=== PATIENT | female | born 1945 | race Hispanic/Latino ===

== ENCOUNTER → 2017-10-03 | Outpatient (CLI) | payer MEDICARE ==
[~2017-10-03] MED LIST: ASPI-1181 PO; IBUP-2077 PO; METF10004 PO; OMEP20TA25 PO
== END | disposition home or self-care (01) ==
LOC: RAH 10:11
PROVIDERS: ATTEND Orthopaedic Surgery
DX: S83.411A Sprain of medial collateral ligament of right knee, initial encounter (principal); S83.241A Other tear of medial meniscus, current injury, right knee, initial encounter; S83.281A Other tear of lateral meniscus, current injury, right knee, initial encounter; M17.11 Unilateral primary osteoarthritis, right knee; X58.XXXA Exposure to other specified factors, initial encounter; Y93.89 Activity, other specified; Y92.89 Other specified places as the place of occurrence of the external cause; Y99.8 Other external cause status
CPT/HCPCS: 73721

== ENCOUNTER 2017-12-14 06:34 | Day surgery (SDC) | payer MEDICARE ==
[2017-12-13 14:47] VITALS: BP 125/69
[2017-12-13 14:59] LABS: BASOPHILS % (AUTO) 0.4 % (0.0-5.0); EOSINOPHILS % (AUTO) 1.5 % (0.0-8.0); HEMATOCRIT 33.3 % (36-48); MEAN CORPUSCULAR HEMOGLOBIN 30.5 pg (27.0-33.0); MEAN CORPUSCULAR HGB CONC 33.8 g/dL (32.0-36.0); MEAN CORPUSCULAR VOLUME 90.3 fL (79-99); MONOCYTES % (AUTO) 7.5 % (3.0-13.0); NEUTROPHILS % (AUTO) 60.6 % (40.0-77.0); PLATELET COUNT (AUTO) 236 K/uL (130-400); RED BLOOD CELL COUNT(AUTO) 3.69 MIL/uL (4.00-5.50); RED CELL DISTRIBUTION WIDTH 13.4 % (11.0-15.5)
[2017-12-13 15:30] LABS: POTASSIUM 4.2 mmol/L (3.5-5.1)
[2017-12-14] VITALS (17 sets, daily range): BP systolic 83–152; BP diastolic 38–79
[~2017-12-14] VITALS: Ht 154.9 cm; Wt 78.0 kg
[2017-12-14] MEDS: CEFAZOLIN SODIUM 1 GM VIAL IVP SCH ×2 (07:30→09:15)
[2017-12-14] MEDS ORDERED: SODIUM CHLORIDE 0.9% 1000ML 1,000 ML IV ONE (07:47)
[2017-12-14] MEDS ORDERED: GLYCOPYRROLATE 0.2 MG/ML 5 ML VIAL ONE (08:17)
[2017-12-14] MEDS ORDERED: DEXAMETHASONE SOD PHOSPHATE 10MG/ML 1ML VIAL ONE (08:17)
[2017-12-14] MEDS ORDERED: LIDOCAINE PF 2% 5ML ABBOJECT ONE (08:17)
[2017-12-14] MEDS ORDERED: MIDAZOLAM HCL 1 MG/ML 2ML VIAL ONE (08:18)
[2017-12-14] MEDS ORDERED: PROPOFOL 10 MG/ML 20ML VIAL IV ONE (08:18)
[2017-12-14] MEDS ORDERED: FENTANYL CITRATE PF 50 MCG/1 ML 2ML VIAL ONE (08:18)
[2017-12-14] MEDS ORDERED: MEPERIDINE-PF 25 MG/ML SYG ONE (10:09)
[2017-12-14] MEDS ORDERED: ACETAMINOPHEN-CODEINE 300/30MG TAB ONE (11:50)
== END 2017-12-14 12:35 | disposition home or self-care (01) ==
LOC: DAH 06:34
PROVIDERS: ATTEND Orthopaedic Surgery
DX: M23.200 Derangement of unspecified lateral meniscus due to old tear or injury, right knee (principal); M23.203 Derangement of unspecified medial meniscus due to old tear or injury, right knee; Z68.32 Body mass index [BMI] 32.0-32.9, adult; E11.9 Type 2 diabetes mellitus without complications; K21.9 Gastro-esophageal reflux disease without esophagitis; G43.909 Migraine, unspecified, not intractable, without status migrainosus; M19.90 Unspecified osteoarthritis, unspecified site; Z98.890 Other specified postprocedural states; Z90.710 Acquired absence of both cervix and uterus; Z79.84 Long term (current) use of oral hypoglycemic drugs; Z79.899 Other long term (current) drug therapy
CPT/HCPCS: 29880; 36415; 80048; 82948 ×2; 85025; A4218; A4606; A4649 ×2; A4930; A6223; J0690; J1100; J2001; J2175; J2250; J2704; J3010; J3490; J7030

== ENCOUNTER → 2021-02-22 | Outpatient (CLI) | payer MEDICARE ==
[~2021-02-22] MED LIST changes: -ASPI-1181 PO; +ASPI-1443 PO; +METF-446 PO; -METF10004 PO
== END | disposition home or self-care (01) ==
LOC: RAH 11:04
PROVIDERS: ATTEND Neurological Surgery
DX: M47.816 Spondylosis without myelopathy or radiculopathy, lumbar region (principal); M48.062 Spinal stenosis, lumbar region with neurogenic claudication; M43.17 Spondylolisthesis, lumbosacral region; M48.07 Spinal stenosis, lumbosacral region; R25.2 Cramp and spasm
CPT/HCPCS: 72148

== ENCOUNTER 2021-06-20 11:00 | Observation (INO) | payer MEDICARE ==
[~2021-06-20] VITALS: Ht 157.5 cm; Wt 78.0 kg
[~2021-06-20 11:00] MED LIST changes: -ASPI-1443 PO
[2021-06-20 13:25] LABS: BASOPHILS % (AUTO) 0.3 % (0.0-5.0); EOSINOPHILS % (AUTO) 2.3 % (0.0-8.0); HEMATOCRIT 33.5 % (36-48); LYMPHOCYTES % (AUTO) 21.9 % (21.0-51.0); MEAN CORPUSCULAR HEMOGLOBIN 30.3 pg (27.0-33.0); MEAN CORPUSCULAR HGB CONC 33.4 g/dL (32.0-36.0); MEAN CORPUSCULAR VOLUME 90.5 fL (79-99); MONOCYTES % (AUTO) 7.9 % (3.0-13.0); NEUTROPHILS % (AUTO) 67.4 % (40.0-77.0); PLATELET COUNT (AUTO) 210 K/uL (130-400); RED CELL DISTRIBUTION WIDTH 12.7 % (11.0-15.5); WHITE BLOOD COUNT (AUTO) 6.5 K/uL (4.8-10.8)
[2021-06-20 13:35] LABS: CREATININE 1.3 mg/dL (0.5-1.5); POTASSIUM 4.5 mmol/L (3.5-5.1)
[2021-06-21 10:34] VITALS: BP 127/68
[2021-06-21] MEDS ORDERED: BACL10TA PO (11:03)
[2021-06-21] MEDS ORDERED: ATOR10 PO (11:03)
[2021-06-22] VITALS (29 sets, daily range): BP systolic 113–145; BP diastolic 45–80
[2021-06-22] MEDS: CEFAZOLIN SODIUM 1 GM VIAL IVP SCH ×4 (05:00→17:01)
[2021-06-22] MEDS ORDERED: MONTELUKAST PO (06:38)
[2021-06-22] MEDS ORDERED: 0.9%NACL 1000ML 1,000 ML IV ONE (06:39)
[2021-06-22] MEDS ORDERED: CEFAZOLIN SODIUM 1 GM VIAL ONE (06:44)
[2021-06-22] MEDS ORDERED: THROMBIN-JMI 20000 UNIT KIT TP ONE (06:44)
[2021-06-22] MEDS ORDERED: BUPIVACAINE/EPI/PF 0.25% 30ML VIAL IJ ONE (06:44)
[2021-06-22] MEDS ORDERED: LIDOCAINE PF 100MG/5ML (2%) SYRINGE 5ML ONE (07:10)
[2021-06-22] MEDS ORDERED: PROPOFOL 10 MG/ML 20ML VIAL IV ONE (07:11)
[2021-06-22] MEDS ORDERED: MIDAZOLAM HCL 1 MG/ML 2ML VIAL ONE (07:11)
[2021-06-22] MEDS ORDERED: ROCURONIUM 10MG/1ML SYR 10 MG/ML ML ONE (07:12)
[2021-06-22] MEDS ORDERED: ONDANSETRON 4MG INJ ONE (07:12)
[2021-06-22] MEDS ORDERED: KETAMINE 50MG/ML SYRINGE 50 MG/ML DISP.SYRIN IV ONE (07:13)
[2021-06-22] MEDS ORDERED: MAGNESIUM SULFATE 1 GM/2 ML VIAL ONE (07:14)
[2021-06-22] MEDS ORDERED: FENTANYL CITRATE PF 50 MCG/1 ML 2ML VIAL ONE ×2 (07:15→11:00)
[2021-06-22] MEDS ORDERED: DEXAMETHASONE SOD PHOSPHATE 10MG/ML 1ML VIAL ONE (07:52)
[2021-06-22] MEDS ORDERED: EPHEDRINE SULFATE 50 MG/ML AMPULE ONE (08:41)
[2021-06-22] MEDS ORDERED: MORPHINE PF 100MG/10ML AMP IV ONE (08:41)
[2021-06-22] MEDS ORDERED: GLYCOPYRROLATE 1 MG/5 ML SYRINGE ONE (10:27)
[2021-06-22] MEDS ORDERED: NEOSTIGMINE 5MG/5ML SYR IV ONE (10:27)
[2021-06-22] MEDS ORDERED: MORPHINE 2 MG SYG IVP PRN (11:00)
[2021-06-22] MEDS: DEXAMETHASONE SOD PHOSPHATE 4 MG/ML 1ML VIAL IVP SCH ×3 (11:00→22:52)
[2021-06-22] MEDS ORDERED: IBUPROFEN 800 MG TAB PO PRN (11:00)
[2021-06-22] MEDS ORDERED: 0.9%NACL 10ML VIAL IVP PRN (11:00)
[2021-06-22] MEDS: LACTATED RINGERS 1000ML 1,000 ML IV SCH (11:00)
[2021-06-22] MEDS ORDERED: PROMETHAZINE HCL 25 MG/ML 1ML AMPULE IM PRN (11:00)
[2021-06-22] MEDS ORDERED: HYDROCODONE/ACETAMINOPHEN 5/325 MG TAB PO PRN (11:00)
[2021-06-22] MEDS ORDERED: KETOROLAC 15MG/ML VIAL (15MG/ML) IV PRN (13:30)
[2021-06-22] MEDS ORDERED: GLUCAGON 1MG KIT 1 MG ML IM PRN (14:30)
[2021-06-22] MEDS ORDERED: DEXTROSE 50%-WATER 50 ML DISP.SYRIN IV PRN (14:30)
[2021-06-22] MEDS: INSULIN HUMULIN R 100 UNIT/ML 3ML SQ SCH ×2 (17:08→20:55)
[2021-06-22] MEDS ORDERED: ATORVASTATIN 10 MG TABLET PO SCH (21:00)
[2021-06-22] MEDS ORDERED: MONTELUKAST SODIUM 10 MG TAB PO SCH (21:00)
[2021-06-23] MEDS: LACTATED RINGERS 1000ML 1,000 ML IV SCH ×2 (00:20→13:40)
[2021-06-23 04:26] VITALS: BP 99/50
[2021-06-23] MEDS: DEXAMETHASONE SOD PHOSPHATE 4 MG/ML 1ML VIAL IVP SCH ×2 (06:04→11:00)
[2021-06-23] MEDS: CEFAZOLIN SODIUM 1 GM VIAL IVP SCH ×2 (06:04→11:00)
[2021-06-23] MEDS: INSULIN HUMULIN R 100 UNIT/ML 3ML SQ SCH ×2 (06:47→12:17)
[2021-06-23] MEDS ORDERED: METFORMIN HCL 500 MG TAB.SR.24H PO SCH (08:00)
[2021-06-23 08:12] VITALS: BP 94/50
[2021-06-23] MEDS ORDERED: BACLOFEN 10 MG TABLET PO SCH (09:00)
[2021-06-23] MEDS ORDERED: PANTOPRAZOLE 40 MG TAB DR PO SCH (09:00)
[2021-06-23] MEDS ORDERED: NON-FORMULARY MEDICATION 1 EACH (Metformin HCl 1,000 MG) PO SCH (09:00)
[2021-06-23 11:07] VITALS: BP 112/51
[2021-06-23] MEDS ORDERED: TAMSULOSIN HCL 0.4 MG CAP.ER.24H ONE (13:45)
[2021-06-23] MEDS ORDERED: TAMSULOSIN HCL 0.4 MG CAP.ER.24H PO SCH (15:00)
== END 2021-06-23 16:20 | disposition home or self-care (01) ==
LOC: EDSTATUS 11:00 → DAHIP 06-22 05:59 → 4DH 06-22 12:36 → 4AH 06-22 20:24
PROVIDERS: ADMIT Neurological Surgery; ATTEND Neurological Surgery
DX: M48.061 Spinal stenosis, lumbar region without neurogenic claudication (principal); Z20.822 Contact with and (suspected) exposure to COVID-19; M47.816 Spondylosis without myelopathy or radiculopathy, lumbar region; M21.371 Foot drop, right foot; M19.90 Unspecified osteoarthritis, unspecified site; E11.9 Type 2 diabetes mellitus without complications; K21.9 Gastro-esophageal reflux disease without esophagitis; G43.909 Migraine, unspecified, not intractable, without status migrainosus; E78.5 Hyperlipidemia, unspecified; Z90.710 Acquired absence of both cervix and uterus; Z79.899 Other long term (current) drug therapy
CPT/HCPCS: 36415; 63047; 63048 ×3; 72020; 80048; 82948 ×6; 85025; 87635; 96361 ×2; 96374; 96375 ×2; 96376 ×2; A4215; A4221; A4222; A4223; A4344; A4649 ×3; A4663; A5113; G0378 ×29; J0690 ×4; J1100 ×4; J1815 ×2; J1885; J2001; J2250; J2274; J2405; J2704; J2710; J3010 ×2; J3475; J3490 ×4; J7030 ×2; J7040; J7120 ×2

== ENCOUNTER 2021-10-17 08:00 | Inpatient (IN) | payer MEDICARE ==
[~2021-10-17] VITALS: Ht 152.4 cm; Wt 77.7 kg
[~2021-10-17 08:00] MED LIST changes: +ATOR10 PO
[2021-10-18 12:44] LABS: BASOPHILS % (AUTO) 0.3 % (0.0-5.0); EOSINOPHILS % (AUTO) 1.5 % (0.0-8.0); HEMATOCRIT 35.2 % (36-48); LYMPHOCYTES % (AUTO) 26.1 % (21.0-51.0); MEAN CORPUSCULAR HGB CONC 33.5 g/dL (32.0-36.0); MEAN CORPUSCULAR VOLUME 89.6 fL (79-99); MONOCYTES % (AUTO) 7.2 % (3.0-13.0); NEUTROPHILS % (AUTO) 64.8 % (40.0-77.0); PLATELET COUNT (AUTO) 218 K/uL (130-400); RED BLOOD CELL COUNT(AUTO) 3.93 MIL/uL (4.00-5.50); RED CELL DISTRIBUTION WIDTH 12.9 % (11.0-15.5); WHITE BLOOD COUNT (AUTO) 6.7 K/uL (4.8-10.8)
[2021-10-18 12:52] LABS: APPEARANCE,URINE Clear (CLEAR); BILIRUBIN,URINE Negative (NEGATIVE); COLOR,URINE Yellow (YELLOW); GLUCOSE, URINE (UA) Negative (NEGATIVE); KETONES,URINE Negative (NEGATIVE); LEUKOCYTE ESTERASE ,URINE Small (NEGATIVE); NITRATE,URINE Negative (NEGATIVE); OCCULT BLOOD,URINE Trace (NEGATIVE); PROTEIN,URINE Negative (NEGATIVE); UROBILINOGEN,URINE 0.2 mg/dL (0.2-1.0)
[2021-10-18 12:58] LABS: CREATININE 0.9 mg/dL (0.5-1.5); POTASSIUM 4.3 mmol/L (3.5-5.1)
[2021-10-18 13:01] LABS: INR 1.02 (0.85-1.15); PROTHROMBIN TIME 11.1 SEC (9.6-11.6)
[2021-10-18 13:17] LABS: BACTERIA,URINE Rare /HPF (None Seen); RBC,URINE 0-1 /HPF (0-1)
[2021-10-18 15:19] VITALS: BP 170/82
[2021-10-18] MEDS ORDERED: MONT10TA21 PO (15:36)
[2021-10-19] VITALS (24 sets, daily range): BP systolic 71–151; BP diastolic 44–80
[2021-10-19] MEDS ORDERED: 0.9%NACL 1000ML 1,000 ML IV ONE (07:17)
[2021-10-19] MEDS ORDERED: CEFAZOLIN SODIUM 1 GM VIAL ONE (07:35)
[2021-10-19] MEDS ORDERED: ROCURONIUM 10MG/1ML SYR 10 MG/ML ML ONE ×3 (07:52→10:30)
[2021-10-19] MEDS ORDERED: LIDOCAINE PF 100MG/5ML (2%) SYRINGE 5ML ONE (07:52)
[2021-10-19] MEDS ORDERED: SUCCINYLCHOLINE CHLORIDE 20 MG/ML 10 ML VIAL ONE (07:52)
[2021-10-19] MEDS ORDERED: ROPIVACAINE 0.5% 5MG/ML 30ML IJ ONE (07:52)
[2021-10-19] MEDS ORDERED: PROPOFOL 10 MG/ML 20ML VIAL IV ONE (07:52)
[2021-10-19] MEDS ORDERED: 0.9%NACL 10ML VIAL ONE ×2 (07:53→07:58)
[2021-10-19] MEDS ORDERED: TRANEXAMIC ACID 1000MG/10ML ONE ×2 (08:29→12:27)
[2021-10-19] MEDS ORDERED: PHENYLEPHRINE HCL 10 MG/ML 1ML VIAL IV ONE ×2 (08:40→09:41)
[2021-10-19] MEDS: CEFAZOLIN SODIUM 1 GM VIAL IVP ONE ×2 (08:56→09:22)
[2021-10-19] MEDS ORDERED: GLYCOPYRROLATE 1 MG/5 ML SYRINGE ONE (09:08)
[2021-10-19] MEDS ORDERED: CEFAZOLIN SODIUM 1 GM VIAL IRRIG ONE (10:00)
[2021-10-19] MEDS ORDERED: EPHEDRINE SULFATE 50 MG/ML AMPULE ONE ×2 (11:19→12:39)
[2021-10-19] MEDS ORDERED: ONDANSETRON 4MG INJ ONE (11:45)
[2021-10-19] MEDS ORDERED: NEOSTIGMINE 5MG/5ML SYR IV ONE (11:45)
[2021-10-19] MEDS ORDERED: FERROUS FUMARATE 324 MG TABLET PO PRN (12:30)
[2021-10-19] MEDS ORDERED: LIDOCAINE HCL-MPF 1% 2ML VIAL IV PRN (12:30)
[2021-10-19] MEDS ORDERED: KCL 20 MEQ ERTAB PO PRN (12:30)
[2021-10-19] MEDS ORDERED: TEMAZEPAM 15 MG CAPSULE PO PRN (12:30)
[2021-10-19] MEDS: 0.9%NACL 1000ML 1,000 ML IV SCH ×2 (12:30→22:30)
[2021-10-19] MEDS: ACETAMINOPHEN 500 MG TABLET PO SCH ×2 (12:30→20:53)
[2021-10-19] MEDS ORDERED: ONDANSETRON 4MG INJ IVP PRN (12:30)
[2021-10-19] MEDS ORDERED: OXYCODONE HCL 5 MG TAB PO PRN ×2 (12:30)
[2021-10-19] MEDS ORDERED: POTASSIUM CHLORIDE 10% ELIXIR 20 MEQ/15 ML UDCUP PO PRN (12:30)
[2021-10-19] MEDS ORDERED: POTASSIUM CHLORIDE 20MEQ/100ML 100 ML IV PRN (12:30)
[2021-10-19] MEDS ORDERED: DiphenhydrAMINE HCL 50 MG/ML VIAL IVP PRN (12:30)
[2021-10-19] MEDS ORDERED: TRAMADOL HCL 50 MG TABLET PO PRN (12:30)
[2021-10-19] MEDS ORDERED: MEPERIDINE-PF 25 MG/ML SYG ONE (12:59)
[2021-10-19] MEDS: KETOROLAC 15MG/ML VIAL (15MG/ML) IV PRN (16:14)
[2021-10-19] MEDS: INSULIN HUMULIN R 100 UNIT/ML 3ML SQ SCH ×2 (16:30→20:41)
[2021-10-19] MEDS: METFORMIN HCL 500 MG TABLET PO SCH (17:00)
[2021-10-19] MEDS: CEFAZOLIN SODIUM 1 GM VIAL IVP SCH (18:24)
[2021-10-19] MEDS: FAMOTIDINE 20MG TAB PO SCH (20:48)
[2021-10-19] MEDS: ASPIRIN 81 MG EC TAB PO SCH (20:48)
[2021-10-19] MEDS: CELECOXIB 200 MG CAP PO SCH (20:48)
[2021-10-20] VITALS (8 sets, daily range): BP systolic 84–123; BP diastolic 39–64
[2021-10-20] MEDS: CEFAZOLIN SODIUM 1 GM VIAL IVP SCH (01:26)
[2021-10-20] MEDS: ACETAMINOPHEN 500 MG TABLET PO SCH ×3 (04:39→19:56)
[2021-10-20 05:56] LABS: POTASSIUM 4.2 mmol/L (3.5-5.1)
[2021-10-20] MEDS: INSULIN HUMULIN R 100 UNIT/ML 3ML SQ SCH ×4 (06:05→21:00)
[2021-10-20 06:26] LABS: HEMATOCRIT 23.8 % (36-48); MEAN CORPUSCULAR HEMOGLOBIN 29.2 pg (27.0-33.0); MEAN CORPUSCULAR HGB CONC 31.1 g/dL (32.0-36.0); MEAN CORPUSCULAR VOLUME 94.1 fL (79-99); RED BLOOD CELL COUNT(AUTO) 2.53 MIL/uL (4.00-5.50); RED CELL DISTRIBUTION WIDTH 13.2 % (11.0-15.5); WHITE BLOOD COUNT (AUTO) 5.9 K/uL (4.8-10.8)
[2021-10-20] MEDS ORDERED: 0.9%NACL 1000ML 1,000 ML IV ONE (08:30)
[2021-10-20] MEDS: 0.9%NACL 1000ML 1,000 ML IV SCH (08:37)
[2021-10-20] MEDS: METFORMIN HCL 500 MG TABLET PO SCH ×2 (08:41→17:57)
[2021-10-20] MEDS: CELECOXIB 200 MG CAP PO SCH ×2 (08:41→19:56)
[2021-10-20] MEDS: MONTELUKAST SODIUM 10 MG TAB PO SCH (08:42)
[2021-10-20] MEDS: ASPIRIN 81 MG EC TAB PO SCH ×2 (08:42→19:56)
[2021-10-20] MEDS: ATORVASTATIN 20 MG TABLET PO SCH (08:43)
[2021-10-20] MEDS: FAMOTIDINE 20MG TAB PO SCH ×2 (08:44→19:56)
[2021-10-20] MEDS: POLYETHYLENE GLYCOL 3350 17 GM POWD.PACK PO SCH (08:45)
[2021-10-20] MEDS: PANTOPRAZOLE 40 MG TAB DR PO SCH (08:46)
[2021-10-20] MEDS: CALCIUM CARB 500MG PO PRN ×2 (10:56→19:56)
[2021-10-20] MEDS: KETOROLAC 15MG/ML VIAL (15MG/ML) IV PRN (18:11)
[2021-10-21 04:26] LABS: BASOPHILS % (AUTO) 0.3 % (0.0-5.0); HEMATOCRIT 26.8 % (36-48); LYMPHOCYTES % (AUTO) 18.2 % (21.0-51.0); MEAN CORPUSCULAR HEMOGLOBIN 29.2 pg (27.0-33.0); MEAN CORPUSCULAR HGB CONC 32.1 g/dL (32.0-36.0); MEAN CORPUSCULAR VOLUME 90.8 fL (79-99); MONOCYTES % (AUTO) 6.5 % (3.0-13.0); NEUTROPHILS % (AUTO) 72.5 % (40.0-77.0); PLATELET COUNT (AUTO) 107 K/uL (130-400); RED BLOOD CELL COUNT(AUTO) 2.95 MIL/uL (4.00-5.50); RED CELL DISTRIBUTION WIDTH 14.8 % (11.0-15.5); WHITE BLOOD COUNT (AUTO) 6.2 K/uL (4.8-10.8)
[2021-10-21 04:37] VITALS: BP 145/78
[2021-10-21] MEDS: INSULIN HUMULIN R 100 UNIT/ML 3ML SQ SCH ×3 (05:39→16:30)
[2021-10-21] MEDS: ACETAMINOPHEN 500 MG TABLET PO SCH ×2 (05:39→12:31)
[2021-10-21 07:59] VITALS: BP 126/63
[2021-10-21] MEDS: METFORMIN HCL 500 MG TABLET PO SCH ×2 (08:01→16:42)
[2021-10-21] MEDS: POLYETHYLENE GLYCOL 3350 17 GM POWD.PACK PO SCH (09:08)
[2021-10-21] MEDS: ATORVASTATIN 20 MG TABLET PO SCH (09:10)
[2021-10-21] MEDS: PANTOPRAZOLE 40 MG TAB DR PO SCH (09:10)
[2021-10-21] MEDS: MONTELUKAST SODIUM 10 MG TAB PO SCH (09:10)
[2021-10-21] MEDS: FAMOTIDINE 20MG TAB PO SCH (09:10)
[2021-10-21] MEDS: CELECOXIB 200 MG CAP PO SCH (09:11)
[2021-10-21] MEDS: ASPIRIN 81 MG EC TAB PO SCH (09:13)
[2021-10-21 11:18] VITALS: BP 134/60
[2021-10-21] MEDS: KETOROLAC 15MG/ML VIAL (15MG/ML) IV PRN (12:45)
[2021-10-21 16:02] VITALS: BP 108/66
[2021-10-22] MEDS ORDERED: BISACODYL 10 MG SUPP.RECT RC PRN (12:30)
== END 2021-10-21 20:17 | DRG 470 ==
LOC: EDSTATUS 08:00 → DAHIP 10-19 06:39 → OBSVTOIN 10-19 06:39 → 3BH 10-19 13:17
PROVIDERS: ADMIT Orthopaedic Surgery; ATTEND Orthopaedic Surgery
PROC: 3E0T33Z Introduction of Anti-inflammatory into Peripheral Nerves and Plexi, Percutaneous Approach (ICD-10-PCS; 2021-10-19)
PROC: 0SR9029 Replacement of Right Hip Joint with Metal on Polyethylene Synthetic Substitute, Cemented, Open Approach (ICD-10-PCS; principal; 2021-10-19 09:49)
PROC: 3E0T3BZ Introduction of Anesthetic Agent into Peripheral Nerves and Plexi, Percutaneous Approach (ICD-10-PCS; 2021-10-19 09:49)
PROC: 30233N1 Transfusion of Nonautologous Red Blood Cells into Peripheral Vein, Percutaneous Approach (ICD-10-PCS; 2021-10-20)
DX: M16.11 Unilateral primary osteoarthritis, right hip (principal); D62 Acute posthemorrhagic anemia; G89.29 Other chronic pain; Z20.822 Contact with and (suspected) exposure to COVID-19; G43.909 Migraine, unspecified, not intractable, without status migrainosus; E11.9 Type 2 diabetes mellitus without complications; M21.751 Unequal limb length (acquired), right femur; K21.9 Gastro-esophageal reflux disease without esophagitis; R26.9 Unspecified abnormalities of gait and mobility; Z88.6 Allergy status to analgesic agent; Z90.49 Acquired absence of other specified parts of digestive tract; Z90.710 Acquired absence of both cervix and uterus; Z82.49 Family history of ischemic heart disease and other diseases of the circulatory system
CPT/HCPCS: 36415; 36430; 73503; 80048; 81001; 82948; 85025; 85027; 85610; 86850; 86900; 86901; 86923; 87088; 87635; 87641; 97039; C1776; G0378; J0330; J0690; J1885; J2001; J2175; J2370; J2405; J2704; J2710; J2795; J3490; J7030; P9016

== ENCOUNTER → 2023-07-02 | Outpatient (CLI) | payer MEDICARE ==
[~2023-07-02] MED LIST changes: -IBUP-2077 PO; +MONT-47 PO; +OMEP20TA20 PO; -OMEP20TA25 PO
[2023-07-02 12:44] LABS: BASOPHILS # (AUTO) 0.03 K/uL (0.00-0.20); BASOPHILS % (AUTO) 0.5 % (0.0-5.0); EOSINOPHILS # (AUTO) 0.13 K/uL (0.00-0.70); EOSINOPHILS % (AUTO) 2.1 % (0.0-8.0); HEMATOCRIT 36.1 % (36-48); IMMATURE GRANULOCYTE ABSOLUTE 0.03 K/uL (0-1); LYMPHOCYTES # (AUTO) 1.5 K/uL (1.0-4.8); LYMPHOCYTES % (AUTO) 24.8 % (21.0-51.0); MEAN CORPUSCULAR HEMOGLOBIN 29.9 pg (27.0-33.0); MEAN CORPUSCULAR VOLUME 96.3 fL (79-99); MONOCYTES # (AUTO) 0.6 K/uL (0.1-1.0); MONOCYTES % (AUTO) 9.4 % (3.0-13.0); NEUTROPHILS # (AUTO) 3.9 K/uL (1.8-7.7); NEUTROPHILS % (AUTO) 62.7 % (40.0-77.0); PLATELET COUNT (AUTO) 197 K/uL (130-400); RED BLOOD CELL COUNT(AUTO) 3.75 MIL/uL (4.00-5.50); RED CELL DISTRIBUTION WIDTH 13.2 % (11.0-15.5); WHITE BLOOD COUNT (AUTO) 6.2 K/uL (4.8-10.8)
[2023-07-02 13:00] LABS: ALBUMIN 4.1 g/dL (3.5-5.0); BILIRUBIN,TOTAL 0.5 mg/dL (0.2-1.0); CREATININE 1.3 mg/dL (0.5-1.5); POTASSIUM 4.8 mmol/L (3.5-5.1); TOTAL PROTEIN, SERUM 7.4 g/dL (6.0-8.3)
== END | disposition home or self-care (01) ==
LOC: LAB 08:41
PROVIDERS: ATTEND Internal Medicine Cardiovascular Disease
DX: E11.9 Type 2 diabetes mellitus without complications (principal); R55 Syncope and collapse; I95.9 Hypotension, unspecified
CPT/HCPCS: 36415; 80053; 85025

== ENCOUNTER 2024-02-06 08:00 | Observation (INO) | payer MEDICARE ==
[~2024-02-06] VITALS: Ht 152.4 cm; Wt 76.9 kg
[~2024-02-06 08:00] MED LIST changes: -ATOR10 PO; -MONT-47 PO
[2024-02-06 11:22] LABS: BASOPHILS # (AUTO) 0.03 K/uL (0.00-0.20); BASOPHILS % (AUTO) 0.4 % (0.0-5.0); EOSINOPHILS # (AUTO) 0.13 K/uL (0.00-0.70); EOSINOPHILS % (AUTO) 1.9 % (0.0-8.0); HEMATOCRIT 35.7 % (36-48); IMMATURE GRANULOCYTE ABSOLUTE 0.02 K/uL (0-1); LYMPHOCYTES # (AUTO) 1.5 K/uL (1.0-4.8); LYMPHOCYTES % (AUTO) 21.4 % (21.0-51.0); MEAN CORPUSCULAR HEMOGLOBIN 30.1 pg (27.0-33.0); MEAN CORPUSCULAR HGB CONC 32.8 g/dL (32.0-36.0); MEAN CORPUSCULAR VOLUME 91.8 fL (79-99); MONOCYTES # (AUTO) 0.6 K/uL (0.1-1.0); MONOCYTES % (AUTO) 8.5 % (3.0-13.0); NEUTROPHILS # (AUTO) 4.6 K/uL (1.8-7.7); NEUTROPHILS % (AUTO) 67.5 % (40.0-77.0); PLATELET COUNT (AUTO) 190 K/uL (130-400); RED BLOOD CELL COUNT(AUTO) 3.89 MIL/uL (4.00-5.50); RED CELL DISTRIBUTION WIDTH 13.4 % (11.0-15.5); WHITE BLOOD COUNT (AUTO) 6.8 K/uL (4.8-10.8)
[2024-02-06 11:29] LABS: CREATININE 1.4 mg/dL (0.5-1.0); INR <= 0.93 (0.85-1.15); POTASSIUM 4.4 mmol/L (3.5-5.1); PROTHROMBIN TIME 10.7 SEC (9.6-11.6)
[2024-02-06 11:31] LABS: PARTIAL THROMBOPLASTIN TIME 25.6 SEC (26.3-35.5)
[2024-02-06 11:39] LABS: ADD UA MICROSCOPIC YES; APPEARANCE,URINE CLEAR (CLEAR); BILIRUBIN,URINE NEGATIVE (NEGATIVE); COLOR,URINE LIGHT-YELLOW (YELLOW); GLUCOSE, URINE (UA) >=1000 mg/dL (NEGATIVE); KETONES,URINE NEGATIVE (NEGATIVE); LEUKOCYTE ESTERASE ,URINE 25 Leu/uL (NEGATIVE); MUCUS,URINE RARE LPF (None Seen); NITRATE,URINE NEGATIVE (NEGATIVE); OCCULT BLOOD,URINE SMALL (NEGATIVE); PH,URINE 5.5 (5.0-8.0); PROTEIN,URINE NEGATIVE (NEGATIVE); SQUAMOUS EPITHELIAL CELL,UR RARE /HPF (0-2); UROBILINOGEN,URINE 0.2 mg/dL (0.2-1.0); WBC,URINE 0-1 /HPF (0-1)
[2024-02-06 12:16] VITALS: BP 150/80; PULSE 59; RESP 18
[2024-02-06] MEDS ORDERED: ROSU20TA73 PO (12:27)
[2024-02-06] MEDS ORDERED: ACET500C4 PO (12:27)
[2024-02-06] MEDS ORDERED: EMPA10TA PO (12:27)
[2024-02-06] MEDS ORDERED: VITA-427 PO (12:27)
[2024-02-06] MEDS ORDERED: IBUP-2077 PO (12:27)
[2024-02-12] VITALS (29 sets, daily range): BP systolic 101–187; BP diastolic 53–90; PULSE 56–86; RESP 10–18; O2SAT 98
[2024-02-12] MEDS ORDERED: SUCCINYLCHOLINE CHLORIDE 20 MG/ML 10 ML VIAL ONE (07:11)
[2024-02-12] MEDS ORDERED: LIDOCAINE PF 100MG/5ML (2%) SYRINGE 5ML ONE (07:11)
[2024-02-12] MEDS ORDERED: DEXAMETHASONE SOD PHOSPHATE 10MG/ML 1ML VIAL ONE (07:11)
[2024-02-12] MEDS ORDERED: GLYCOPYRROLATE 0.2 MG/ML 5 ML VIAL ONE (07:11)
[2024-02-12] MEDS ORDERED: ONDANSETRON 4MG INJ ONE (07:11)
[2024-02-12] MEDS ORDERED: MIDAZOLAM HCL 1 MG/ML 2ML VIAL ONE (07:12)
[2024-02-12] MEDS ORDERED: ROCURONIUM BROMIDE 10MG/1ML 5ML VL ONE ×2 (07:12→09:21)
[2024-02-12] MEDS ORDERED: NEOSTIGMINE METHYLSULFATE 1MG/ML IV ONE (07:12)
[2024-02-12] MEDS ORDERED: PROPOFOL 10 MG/ML 20ML VIAL IV ONE ×2 (07:12→09:20)
[2024-02-12] MEDS ORDERED: FENTANYL CITRATE PF 50 MCG/1 ML 2ML VIAL ONE ×2 (07:13→09:09)
[2024-02-12] MEDS: 0.9%NACL 1000ML 1,000 ML IV ONE (07:14)
[2024-02-12] MEDS ORDERED: TRANEXAMIC ACID 1000MG/10ML ONE (07:39)
[2024-02-12] MEDS ORDERED: CEFAZOLIN SODIUM 1 GM VIAL ONE (07:39)
[2024-02-12] MEDS ORDERED: OXYMETAZOLINE HCL SPRAY 15 ML BOTTLE ONE (07:39)
[2024-02-12] MEDS ORDERED: ROPIVACAINE 0.5% 5MG/ML 30ML ONE (07:39)
[2024-02-12] MEDS: [UNRECOGNIZED DRUG - OTHER] IJ ONE (08:00)
[2024-02-12] MEDS: VANCOMYCIN IJ ONE (08:00)
[2024-02-12] MEDS: CEFAZOLIN SODIUM 2 GM VIAL IVPB ONE (08:06)
[2024-02-12] MEDS ORDERED: DiphenhydrAMINE HCL 50 MG/ML VIAL IVP PRN (11:00)
[2024-02-12] MEDS ORDERED: KETOROLAC 15MG/ML VIAL (15MG/ML) IV PRN (11:00)
[2024-02-12] MEDS ORDERED: FERROUS FUMARATE 324 MG TABLET PO PRN (11:00)
[2024-02-12] MEDS ORDERED: POTASSIUM CHLORIDE 10% ELIXIR 20 MEQ/15 ML UDCUP PO PRN (11:00)
[2024-02-12] MEDS ORDERED: KCL 20 MEQ ERTAB PO PRN (11:00)
[2024-02-12] MEDS ORDERED: CALCIUM CARB 500MG PO PRN (11:00)
[2024-02-12] MEDS: ACETAMINOPHEN 500 MG TABLET PO SCH (11:00)
[2024-02-12] MEDS ORDERED: ONDANSETRON 4MG INJ IVP PRN (11:00)
[2024-02-12] MEDS ORDERED: POTASSIUM CHLORIDE 20MEQ/100ML 100 ML IV PRN (11:00)
[2024-02-12] MEDS: INSULIN HUMULIN R 100 UNIT/ML 3ML SQ SCH (11:30)
[2024-02-12] MEDS: ONDANSETRON 4MG INJ ONE (11:34)
[2024-02-12] MEDS: ACETAMINOPHEN 1,000 MG/100 ML VIAL IV ONE (11:35)
[2024-02-12] MEDS: MEPERIDINE-PF 25 MG/ML SYG ONE ×2 (11:35)
[2024-02-12] MEDS: TRAMADOL HCL 50 MG TABLET PO PRN (13:18)
[2024-02-12] MEDS: 0.9%NACL 1000ML 1,000 ML IV SCH (13:20)
[2024-02-12] MEDS: CEFAZOLIN SODIUM 2 GM VIAL IVPB SCH (16:57)
[2024-02-12] MEDS: OXYCODONE HCL 5 MG TAB PO PRN (17:02)
[2024-02-12] MEDS: CELECOXIB 200 MG CAP PO SCH (20:12)
[2024-02-12] MEDS: ATORVASTATIN 40 MG TABLET PO SCH (20:12)
[2024-02-12] MEDS: ASPIRIN 81 MG EC TAB PO SCH (20:12)
[2024-02-12] MEDS: FAMOTIDINE 20MG TAB PO SCH (20:12)
[2024-02-13 04:00] VITALS: BP 108/58; PULSE 66; RESP 18
[2024-02-13 04:07] LABS: HEMATOCRIT 29.8 % (36-48); MEAN CORPUSCULAR HGB CONC 32.6 g/dL (32.0-36.0); MEAN CORPUSCULAR VOLUME 92.3 fL (79-99); RED BLOOD CELL COUNT(AUTO) 3.23 MIL/uL (4.00-5.50); RED CELL DISTRIBUTION WIDTH 13.2 % (11.0-15.5); WHITE BLOOD COUNT (AUTO) 8.3 K/uL (4.8-10.8)
[2024-02-13 04:15] LABS: CREATININE 1.3 mg/dL (0.5-1.0); POTASSIUM 4.9 mmol/L (3.5-5.1)
[2024-02-13 07:00] VITALS: BP 123/59; PULSE 59; RESP 18
[2024-02-13 07:45] VITALS: O2SAT 99
[2024-02-13] MEDS: POLYETHYLENE GLYCOL 3350 17 GM POWD.PACK PO SCH (07:59)
[2024-02-13] MEDS: PANTOPRAZOLE 40 MG TAB DR PO SCH (08:00)
[2024-02-13] MEDS: EMPAGLIFLOZIN 10MG TABLET PO SCH (08:02)
[2024-02-13] MEDS: Vitamin B Complex 1 EACH PO SCH (08:02)
[2024-02-13] MEDS ORDERED: NON-FORMULARY MEDICATION 1 EACH (Metformin HCl 1,000 MG) PO SCH (09:00)
[2024-02-13 11:40] VITALS: BP 119/61; PULSE 60; RESP 18
[2024-02-13] MEDS: OXYCODONE HCL 5 MG TAB PO PRN (13:07)
[2024-02-13 15:00] VITALS: BP 115/53; PULSE 62; RESP 18
[2024-02-13] MEDS: BISACODYL 10 MG SUPP.RECT RC ONE (16:14)
[2024-02-15] MEDS ORDERED: BISACODYL 10 MG SUPP.RECT RC PRN (11:00)
== END 2024-02-13 18:25 | disposition home or self-care (01) ==
LOC: DAHIP 02-12 06:07 → INTOOBSV 02-12 06:07 → OBSVTOIN 02-12 06:07 → 4CH 02-12 13:10
PROVIDERS: ADMIT Orthopaedic Surgery; ATTEND Orthopaedic Surgery
DX: M17.12 Unilateral primary osteoarthritis, left knee (principal); G89.18 Other acute postprocedural pain; K21.9 Gastro-esophageal reflux disease without esophagitis; E11.9 Type 2 diabetes mellitus without complications; E78.5 Hyperlipidemia, unspecified; G43.909 Migraine, unspecified, not intractable, without status migrainosus; Z96.641 Presence of right artificial hip joint; Z79.899 Other long term (current) drug therapy; Z98.890 Other specified postprocedural states; Z86.2 Personal history of diseases of the blood and blood-forming organs and certain disorders involving the immune mechanism; Z88.5 Allergy status to narcotic agent; Z90.49 Acquired absence of other specified parts of digestive tract; Z90.710 Acquired absence of both cervix and uterus
CPT/HCPCS: 80048 ×2; 85025; 85610; 85730; 86850 ×2; 86900 ×2; 86901 ×2; 87088; 81001; 36415 ×3; 87641; 96365; 96366; 96375; 64447; 27447; 82948 ×7; 97161; 97116 ×3; 85027; 97530 ×4; A6260; J1815; G0378 ×21; G0379; A4663; J7120; J3010 ×2; J0690 ×5; J3490 ×5; J1100; J0330; J7030; J2001; J2250; J2704 ×2; J2405 ×2; J2710; J2175 ×2; J2795; J3370; A9272; A4649 ×3; A4930 ×3; C1763 ×2; C1776; A5120; A4215; A4223; A4222; A4221